=== PATIENT | female | born 1945 | race Caucasian/White ===

== ENCOUNTER 2017-12-30 13:38 | Observation (INO) | payer OTHER, MEDICARE ==
--- NOTE | 2017-12-30 13:41 | PDOC ---
History of Present Illness - General History Source: Patient Exam Limitations: No Limitations - History of Present Illness Initial Comments: 12/30/17 14:24 The patient is a 72 year old female with history of hypertension, hyperlipidemia , DM, past SVT who presents to the ED complaining of diffuse back, neck, and chest pain that began this morning. The patient states her pain is constant, moderate in intensity, radiating to the elbows bilaterally, with no alleviating or exacerbating factors. She also reports associated nausea. No fever or chills. No headache or blurred vision. EKG on ED arrival demonstrated SVT. The patient does endorse having Lighting Engineering Technician: Dr. Alfonso, <Ashley Perez - Last Filed: 12/30/17 15:59> <Jonah Walker - Last Filed: 12/30/17 19:07> - General Chief Complaint: Irregular Heart Beat Stated Complaint: FAST HEART BEAT Time Seen by Provider: 12/30/17 13:40 Past History <Ashley Perez - Last Filed: 12/30/17 15:59> <Jonah Walker - Last Filed: 12/30/17 19:07> - Past Medical History Allergies/Adverse Reactions: Allergies Allergy/AdvReac Type Severity Reaction Status Date / Time Fish Containing Products Allergy Verified 12/30/17 13:53 Penicillins Allergy Verified 12/30/17 13:53 Home Medications: Ambulatory Orders Diltiazem [Cardizem -] 120 mg PO DAILY 12/30/17 Levothyroxine [Synthroid -] 125 mcg PO DAILY 12/30/17 Quinapril HCl 20 mg PO ASDIR 12/30/17 Quinapril/Hydrochlorothiazide [Accuretic 20-12.5 mg Tablet] 1 each PO DAILY Review of Systems - Review of Systems Able to Perform ROS?: Yes Comments:: 12/30/17 14:29 A complete review of 10 out of 10 review of systems is taken and is negative apart from what is previously mentioned below and in the HPI. <Ashley Perez - Last Filed: 12/30/17 15:59> *Physical Exam - Vital Signs Last Vital Signs Temp Pulse Resp BP Pulse Ox 103 H 20 159/84 100 12/30/17 13:59 12/30/17 13:59 12/30/17 13:59 12/30/17 13:59 - Physical Exam Comments: 12/30/17 14:30 Vitals: Triage vital signs reviewed General Appearance: No acute distress, well nourished, well developed Head: Atraumatic Neck: Supple; No nuchal rigidity Chest Wall: Nontender Cardiac: Regular rate and rhythm, no murmurs, no rubs, no gallops Lungs: Clear to auscultation bilateral, good air movement bilaterally Abdomen: Soft, nondistended, normal bowel sounds, nontender to palpation Extremities: Full range of motion to all extremities, no cyanosis, clubbing, or edema Skin: Warm and dry, no rashes or lesions, no rash, no petechiae Neuro: AOX3; Cranial Nerves 2-12 grossly intact, Strength intact to all extremities, Sensation intact to all extremities, gait normal Psych: Normal mood, normal affect <Ashley Perez - Last Filed: 12/30/17 15:59> ED Treatment Course - LABORATORY CBC & Chemistry Diagram: 12/30/17 13:46 12/30/17 13:46 - ADDITIONAL ORDERS Additional order review: 12/30/17 13:46 RBC 4.46 MCV 91.0 MCHC 35.0 RDW 12.6 MPV 8.7 Neutrophils % 65.5 Lymphocytes % 25.8 Monocytes % 6.7 Eosinophils % 1.6 Basophils % 0.4 <Ashley Perez - Last Filed: 12/30/17 15:59> - LABORATORY CBC & Chemistry Diagram: 12/30/17 13:46 12/30/17 13:46 <Jonah Walker - Last Filed: 12/30/17 19:07> Medical Decision Making - Medical Decision Making 12/30/17 15:05 72 year old female with history of hypertension, hyperlipidemia, diabetes, past SVT here today for 1 day history of diffuse chest and torso pain and nausea. EKG on arrival demonstrates SVT. Plan: -Lab (CBC, CMP, Lactic Acid, Trop) -CXR -EKG -IVF <Ashley Perez - Last Filed: 12/30/17 15:59> - Critical Care Time Total Critical Care Time (minutes): 45 Critical Care Statement: The care of this patient involved high complexity decision making to prevent further life threatening deterioration of the patient 's condition and/or to evaluate & treat vital organ system(s) failure or risk of failure. - Medical Decision Making Medical decision making status post adenosine patient now in sinus rhythm no ischemic changes. All patient symptomatology including neck back shoulder arm discomfort have all resolved. Her repeat EKG demonstrates sinus rhythm with no ST elevations and no T-wave inversions Labs pending Reevaluation first troponin negative Case discussed with patient's covering yarding and folding machine operator Dr. Hooker agrees with plan of second troponin if no delta in her troponins we will increase her diltiazem from 60 mg to 120 mg and she be discharged home Reevaluation patient remains chest pain-free however her second troponin has increased 2.1 Given this delta patient will require observation overnight for serial troponins. We'll give 325 mg aspirin. Will observe overnight. Assessment was to management of care. <Jonah Walker - Last Filed: 12/30/17 19:07> *DC/Admit/Observation/Transfer - Attestations Scribe Attestion: 12/30/17 14:30 Documentation prepared by Ashley Perez, acting as medical assistant prn for Jonah Walker MD. <Ashley Perez - Last Filed: 12/30/17 15:59> - Discharge Dispostion Admit: Yes <Jonah Walker - Last Filed: 12/30/17 19:07> Diagnosis at time of Disposition: SVT (supraventricular tachycardia), Elevated troponin
[2017-12-30 14:17] LABS: BASO % 0.4 % (0-2.0); EOS % 1.6 % (0-4.5); HEMATOCRIT 40.6 % (32.4-45.2); HEMOGLOBIN 14.2 GM/dl (10.7-15.3); LYMPH % 25.8 % (8-40); MCH 31.9 pg (25.7-33.7); MEAN PLT VOLUME 8.7 fl (7.5-11.1); MONO % 6.7 % (3.8-10.2); NEUT % 65.5 % (42.8-82.8); PLATELET COUNT 263 K/MM3 (134-434); RBC 4.46 M/mm3 (3.60-5.2); RDW 12.6 % (11.6-15.6); WHITE BLOOD COUNT 10.3 K/mm3 (4.0-10.8)
[2017-12-30 14:26] LABS: ALBUMIN 4.3 g/dl (3.5-5.0); ALK PHOS 81 U/L (32-92); ANION GAP 7 (8-16); BILIRUBIN,TOTAL 0.8 mg/dl (0.2-1.0); BLOOD UREA NITROGEN 16 mg/dl (7-18); CALCIUM 8.8 mg/dl (8.4-10.2); CHLORIDE 101 mmol/L (98-107); CO2 28 mmol/L (22-28); GLUCOSE,RANDOM 118 mg/dl (74-106); POTASSIUM 3.3 mmol/L (3.5-5.1); SGOT/AST 42 U/L (10-42); SGPT/ALT 47 U/L (10-40); SODIUM 136 mmol/L (136-145); TOT PROT 7.4 g/dl (6.4-8.3)
[2017-12-30] MEDS ORDERED: ADENOSINE 6 MG/2 ML VIAL IVPUSH ONE (14:30)
[2017-12-30 14:34] LABS: CREATININE 0.8 mg/dl (0.6-1.3)
[2017-12-30] MEDS ORDERED: dilTIAZem HCL 60 MG TABLET (FP) PO ONE (16:55)
[2017-12-30] MEDS ORDERED: ASPIRIN 325 MG ENTERIC COATED TABLET (FP) PO ONE (18:19)
[2017-12-30] MEDS ORDERED: ASPIRIN 325 MG TABLET ONE (19:07)
[2017-12-30] MEDS ORDERED: POTASSIUM CHLORIDE TABS 20 MEQ TABLET.ER (FP) PO ONE ×2 (19:27→19:30)
--- NOTE | 2017-12-30 23:56 | HP ---
CHIEF COMPLAINT: rapid heart beat PCP: Naty HISTORY OF PRESENT ILLNESS: This is a 72 year old female with a past medical history significant for SVT and hypothyroidism who presented to the ED with rapid heart beat. Pt reports that when she awoke this morning she wasn;t feeling well; she reports nausea, general malaise, neck and shoulder pain, elbow and hand achiness. She attributed the pain to working on her computer more over the past 2 days and decided she needed some exercise. She decided to walk to the [employer] but when she got to the library her heart started racing. SHe also reports that her BP was unusually high in the 150s this morning and she realized she had not taken her diltiazem over the past 2 days as she had "set it aside to take later, but later never came". She took her diltiazem and her quinapril 20/HCTZ this am. She reports she missed her synthroid this am. She denies any chest pain. ER course was notable for: (1) ECG with SVT, given adenosine 6mg with conversion to SR (2) second troponin 0.10 Recent Travel: pt denies PAST MEDICAL HISTORY: HTN, HLD, DM, SVT, hypothyroidism PAST SURGICAL HISTORY: tear duct surgery, thyroidectomy 2007, x 2 Social History: Smoking: pt denies Alcohol: occ-1xmonth maybe Drugs: pt denies Family History: mother age 86, multiple CVAs father age 93, asthma, DM2, prostate CA 1 sister s/p PPM 1 sister lupus arthritis Allergies Fish Containing Products Allergy (Verified 12/30/17 13:53) Penicillins Allergy (Verified 12/30/17 13:53) HOME MEDICATIONS: 3 Medication Instructions Recorded Diltiazem [Cardizem -] 120 mg PO DAILY 12/30/17 Levothyroxine [Synthroid -] 125 mcg PO DAILY 12/30/17 Quinapril HCl 20 mg PO [facility] 12/30/17 Quinapril/Hydrochlorothiazide 1 each PO [facility] 12/30/17 [Accuretic 20-12.5 mg Tablet] REVIEW OF SYSTEMS CONSTITUTIONAL: Absent: fever, chills, diaphoresis, generalized weakness, malaise, loss of appetite, weight change HEENT: Absent: rhinorrhea, nasal congestion, throat pain, throat swelling, difficulty swallowing, mouth swelling, ear pain, eye pain, visual changes CARDIOVASCULAR: Present: palpitations, rapid heart beat Absent: chest pain, syncope, irregular heart rate, lightheadedness, peripheral edema RESPIRATORY: Absent: cough, shortness of breath, dyspnea with exertion, orthopnea, wheezing, stridor, hemoptysis GASTROINTESTINAL: Present: nausea Absent: abdominal pain, abdominal distension, vomiting, diarrhea, constipation, melena, hematochezia GENITOURINARY: Absent: dysuria, frequency, urgency, hesitancy, hematuria, flank pain, genital pain MUSCULOSKELETAL: Present: shoulder pain, neck pain, elbow pain and hand pain Absent: myalgia, arthralgia, joint swelling, back pain, neck pain SKIN: Absent: rash, itching, pallor HEMATOLOGIC/IMMUNOLOGIC: Absent: easy bleeding, easy bruising, lymphadenopathy, frequent infections ENDOCRINE: Absent: unexplained weight gain, unexplained weight loss, heat intolerance, cold intolerance NEUROLOGIC: Absent: headache, focal weakness or paresthesias, dizziness, unsteady gait, seizure, mental status changes, bladder or bowel incontinence PSYCHIATRIC: Absent: anxiety, depression, suicidal or homicidal ideation, hallucinations. PHYSICAL EXAMINATION Vital Signs - 24 hr 3 12/30/17 12/30/17 12/30/17 13:38 13:59 14:36 Temperature 97.2 F L 97.2 F L Pulse Rate 192 H Pulse Rate [ 103 H 98 H Right] Respiratory 20 20 20 Rate Blood Pressure 164/112 Blood Pressure 159/84 129/77 [Left Arm] O2 Sat by Pulse 97 100 97 Oximetry (%) 3 12/30/17 12/30/17 12/30/17 15:33 15:54 18:12 Temperature 98 F Pulse Rate Pulse Rate [ 93 H 89 72 Right] Respiratory 20 20 20 Rate Blood Pressure Blood Pressure 123/72 121/74 133/64 [Left Arm] O2 Sat by Pulse 99 98 98 Oximetry (%) GENERAL: Awake, alert, and fully oriented, in no acute distress. HEAD: Normal with no signs of trauma. EYES: Pupils equal, round and reactive to light, extraocular movements intact, sclera anicteric, conjunctiva clear. No lid lag. EARS, NOSE, THROAT: Ears normal, nares patent, oropharynx clear without exudates. Moist mucous membranes. NECK: Normal range of motion, supple without lymphadenopathy, JVD, or masses. LUNGS: Breath sounds equal, clear to auscultation bilaterally. No wheezes, and no crackles. No accessory muscle use. HEART: Regular rate and rhythm, normal S1 and S2 without murmur, rub or gallop. ABDOMEN: Soft, nontender, not distended, normoactive bowel sounds, no guarding, no rebound, no masses. No hepatomegaly or splenomegaly. MUSCULOSKELETAL: Normal range of motion at all joints. No bony deformities or tenderness. No CVA tenderness. UPPER EXTREMITIES: 2+ pulses, warm, well-perfused. No cyanosis. No clubbing. No peripheral edema. LOWER EXTREMITIES: 2+ pulses, warm, well-perfused. No calf tenderness. No peripheral edema. NEUROLOGICAL: Cranial nerves II-XII intact. Normal speech. Normal gait. PSYCHIATRIC: Cooperative. Good eye contact. Appropriate mood and affect. SKIN: Warm, dry, normal turgor, no rashes or lesions noted, normal capillary refill. Laboratory Results - last 24 hr 3 12/30/17 12/30/17 12/30/17 12/30/17 12/30/17 13:42 13:46 13:46 16:52 17:01 WBC 10.3 RBC 4.46 Hgb 14.2 Hct 40.6 MCV 91.0 MCH 31.9 MCHC 35.0 RDW 12.6 Plt Count 263 MPV 8.7 Neutrophils % 65.5 Lymphocytes % 25.8 Monocytes % 6.7 Eosinophils % 1.6 Basophils % 0.4 Sodium 136 Potassium 3.3 L Chloride 101 Carbon Dioxide 28 Anion Gap 7 L BUN 16 Creatinine 0.8 Creat Clearance w eGFR > 60 Random Glucose 118 H Calcium 8.8 Magnesium 1.8 Total Bilirubin 0.8 AST 42 ALT 47 H Alkaline Phosphatase 81 Troponin I < 0.03 0.10 H Total Protein 7.4 Albumin 4.3 EC12/30/17 13:36 SVT Vent rate [address] abnormality, possible inferolateral subendocardial injury 12/30/17 14:00 Sinus tachycardia with occ PVC Vent rate 105, QTC [address]/T wave changes present Radiology Reports CXR IMPRESSION: No acute disease. Reported By: Stanley Regan MD 12/30/17 0694 ASSESSMENT/PLAN: 72yF with PMH HTN, HLD, SVT, DM, hypothyroidism presented to the ED with rapid heart beat. SVT - broke with adenosine 6mg - likely due to pt missing doses of diltiazem - resume home diltiazem and increase dose to 120mg daily as per ED as per PCP - monitor on tele Elevated troponin - likely due to demand ischemia during SVT - trend troponin - ASA given in ED HLD - not on meds, f/u with PCP hypothyroidism - check TSH DM - pt states she is diet controlled. Check A1C DVT PPX - deferred, anticipated LOS <48h FEN - tolerating po - BMP in am - low sodium diet in am Dispo: Pt requires cardiac monitoring overnight. May go home in am for outpatient follow up if Troponin trends down Visit type - Emergency Visit Emergency Visit: Yes ED Registration Date: 12/30/17 Care time: The patient presented to the Emergency Department on the above date and was hospitalized for further evaluation of their emergent condition. - New Patient This patient is new to me today: Yes Date on this admission: 12/30/17 - Critical Care Critical Care patient: No
[2017-12-31 01:34] VITALS: BMI 24.5
[2017-12-31] MEDS ORDERED: LEVOTHYROXINE NA 125 MCG TABLET (FP) PO SCH (07:00)
[2017-12-31 09:01] LABS: ANION GAP 8 (8-16); BLOOD UREA NITROGEN 14 mg/dl (7-18); CALCIUM 8.9 mg/dl (8.4-10.2); CHLORIDE 105 mmol/L (98-107); CO2 26 mmol/L (22-28); GLUCOSE,RANDOM 125 mg/dl (74-106); MAGNESIUM 1.9 mg/dL (1.8-2.4); PHOSPHOROUS 3.5 mg/dl (2.5-4.6); POTASSIUM 3.7 mmol/L (3.5-5.1); SODIUM 139 mmol/L (136-145)
[2017-12-31 09:49] LABS: CREATININE < 0.8 mg/dl (0.6-1.3)
[2017-12-31] MEDS ORDERED: PATIENT'S OWN MEDICATION (NON-FORMULARY) (Quinapril/Hydrochlorothiazide [Accuretic 20-12.5 PO SCH (10:00)
[2017-12-31] MEDS ORDERED: HYDROCHLOROTHIAZIDE 12.5 MG CAPSULE (FP) PO SCH (10:00)
[2017-12-31] MEDS ORDERED: QUINAPRIL HCL 20 MG TABLET (FP) PO SCH (10:00)
[2017-12-31 10:09] LABS: BASO % 0.6 % (0-2.0); EOS % 2.1 % (0-4.5); HEMATOCRIT 37.7 % (32.4-45.2); HEMOGLOBIN 13.2 GM/dl (10.7-15.3); LYMPH % 29.9 % (8-40); MEAN CELL VOLUME 91.5 fl (80-96); MEAN PLT VOLUME 8.4 fl (7.5-11.1); MONO % 6.8 % (3.8-10.2); NEUT % 60.6 % (42.8-82.8); PLATELET COUNT 236 K/MM3 (134-434); RBC 4.12 M/mm3 (3.60-5.2); RDW 12.7 % (11.6-15.6); WHITE BLOOD COUNT 6.8 K/mm3 (4.0-10.8)
--- NOTE | 2017-12-31 12:28 | EKG ---
Test Reason : Blood Pressure : / mmHG Vent. Rate : 053 BPM Atrial Rate : 053 BPM P-R Int : 178 ms QRS Dur : 080 ms QT Int : 418 ms P-R-T Axes : 065 008 022 degrees QTc Int : 392 ms POOR DATA QUALITY, INTERPRETATION MAY BE ADVERSELY AFFECTED SINUS BRADYCARDIA OTHERWISE NORMAL ECG NO PREVIOUS ECGS AVAILABLE Confirmed by PJ PENALOZA MD ([id number]) on 12/31/2017 12:28:36 PM Referred By: Confirmed By:PJ PENALOZA MD
--- NOTE | 2017-12-31 12:59 | PN ---
Progress Note, Physician Chief Complaint: Paroxysmal SVT - Current Medication List Current Medications: Active Medications Diltiazem HCl (Cardizem Cd -) 120 mg PO DAILY [facility] Last Admin: 12/31/17 09:23 Dose: 120 mg Hydrochlorothiazide (Hctz -) 12.5 mg PO DAILY [facility] Last Admin: 12/31/17 09:23 Dose: 12.5 mg Levothyroxine Sodium (Synthroid -) 125 mcg PO DAILY@0700 [facility] Last Admin: 12/31/17 06:35 Dose: 125 mcg Quinapril HCl (Accupril -) 20 mg PO DAILY [facility] Last Admin: 12/31/17 09:23 Dose: 20 mg - Objective Vital Signs: Vital Signs Temperature 97.7 F 12/31/17 09:18 Pulse Rate 67 12/31/17 09:18 Respiratory Rate 18 12/31/17 09:18 Blood Pressure 186/67 12/31/17 09:18 O2 Sat by Pulse Oximetry (%) 98 12/31/17 06:11 Labs: CBC, BMP 12/31/17 07:00 12/31/17 07:00
--- NOTE | 2017-12-31 13:06 | CON.CARD ---
Consult Consult Specialty:: Cardiology Referred by:: Erica Barillas NP Reason for Consultation:: Paroxysmal SVT - History of Present Illness Chief Complaint: SVT History of Present Illness: 72 yo female with HTN, h/o paroxysmal SVT, and hypothyroidism who presented to the ED with palpitations which began yesterday morning. She had reported dealing with an "illness" over the past several weeks and had developed nausea, malaise, body myalgias including shoulder and neck pain which she attributed to working on her computer over the past several days. She took a walk outside yesterday and developed sudden onset of palpitations with associated bilateral arm discomfort. She reports missing her diltiazem over the past several days. In ED, she was found to be in SVT with HR 180s. She was given adenosine 6 mg IV x1 with conversion of SVT to sinus rhythm with improvement in her bilateral arm discomfort. Her initial trop was 0.10 -> 0.11 -> 0.04. Currently asymptomatic. Patient reports that her last stress test was ~ 2-3 years ago. - History Source History Provided By: Patient, Family Member () Limitations to Obtaining History: No Limitations - Past Medical History Cardio/Vascular: Yes: HTN, Hyperlipdemia, Other (Paroxysmal SVT) ...: No Endocrine: Yes: Hypothyroidism - Past Surgical History Past Surgical History: Yes: (x2) Additional Surgical History: Throidectomy 2008, tear duct surgery - Alcohol/Substance Use Hx Alcohol Use: No - Smoking History Smoking history: Never smoked Have you smoked in the past 12 months: No Home Medications - Allergies Allergies/Adverse Reactions: Allergies Allergy/AdvReac Type Severity Reaction Status Date / Time Fish Containing Products Allergy Verified 12/30/17 13:53 Penicillins Allergy Verified 12/30/17 13:53 - Home Medications Home Medications: Ambulatory Orders Diltiazem [Cardizem -] 120 mg PO DAILY 12/30/17 Levothyroxine [Synthroid -] 125 mcg PO DAILY 12/30/17 Quinapril HCl 20 mg PO ASDIR 12/30/17 Quinapril/Hydrochlorothiazide [Accuretic 20-12.5 mg Tablet] 1 each PO DAILY Family Disease History - Family Disease History Family Disease History: Diabetes: Father (Prostate cancer), CA: Father, Other: Mother (CVAs), Sister (Lupus) Review of Systems - Review of Systems Constitutional: reports: No Symptoms Eyes: reports: No Symptoms Cardiovascular: reports: Palpitations. denies: Chest Pain, Edema, Shortness of Breath Respiratory: reports: No Symptoms Gastrointestinal: reports: No Symptoms Genitourinary: reports: No Symptoms Musculoskeletal: reports: Other (Shoulder muscle aches) Neurological: reports: No Symptoms Endocrine: reports: No Symptoms Hematology/Lymphatic: reports: No Symptoms Psychiatric: reports: No Symptoms Vital Signs: Vital Signs Temperature 97.7 F 12/31/17 09:18 Pulse Rate 67 12/31/17 09:18 Respiratory Rate 18 12/31/17 09:18 Blood Pressure 186/67 12/31/17 09:18 O2 Sat by Pulse Oximetry (%) 98 12/31/17 06:11 Constitutional: Yes: Well Nourished, No Distress Eyes: Yes: Conjunctiva Clear, EOM Intact HENT: Yes: Atraumatic, Normocephalic Respiratory: Yes: CTA Bilaterally Gastrointestinal: Yes: Normal Bowel Sounds, Soft. No: Tenderness Cardiovascular: Yes: Regular Rate and Rhythm JVD: No Carotid Bruit: No PMI: Non-Displaced Heart Sounds: Yes: S1, S2 Murmur: No: Systolic Murmur Extremities: Yes: WNL Edema: No Peripheral Pulses WNL: Yes Neurological: Yes: WNL, Alert, Oriented, Cran Nerves II-XII Intact Psychiatric: Yes: WNL - Other Data Labs, Other Data: CBC, BMP 12/31/17 07:00 12/31/17 07:00 Troponin, BNP 12/30/17 12/30/17 12/30/17 13:42 13:46 17:01 Troponin I < 0.03 Cancelled 0.10 H 12/31/17 12/31/17 12/31/17 00:20 00:21 07:00 Troponin I 0.11 H Cancelled 0.04 Troponin, BNP 12/30/17 12/30/17 12/30/17 13:42 13:46 17:01 Troponin I < 0.03 Cancelled 0.10 H 12/31/17 12/31/17 12/31/17 00:20 00:21 07:00 Troponin I 0.11 H Cancelled 0.04 12/31/17 ECG: Sinus bradycardia, rate 53 bpm Imaging - Results Chest X-ray: Report Reviewed (2/15/18: No acute disease), Image Reviewed Assessment/Plan 72 yo female with HTN, paroxysmal SVT, and hypothyroidism who presented to the ED yesterday with paroxysmal SVT with HR 180s. Converted to sinus with 6 mg of IV adenosine with resolution of her associated bilateral arm discomfort. Her initial trop was 0.10 -> 0.11 -> 0.04. TSH pending Currently asymptomatic. RECS: Patient was instructed to continue her diltiazem and to ensure she does not miss any doses. Continue her Patient to follow-up with her private psychology lecturer and would benefit from echocardiogram (if not done recently) and stress testing to evaluate for ischemic heart disease given reported bilateral arm discomfort with her SVT. Patient may be discharged from cardiac standpoint. No further inpatient cardiac evaluation/intervention is clinically indicated at this time. Will see prn. Please call with questions.
--- NOTE | 2017-12-31 14:01 | DS ---
Physical Exam: SUBJECTIVE: Patient seen and examined OBJECTIVE: Vital Signs Period Temp Pulse Resp BP Sys/Shea Pulse Ox Last 24 Hr 97.2 F-98.1 F 61-98 16-20 104-186/59-77 96-100 PHYSICAL EXAM GENERAL: The patient is awake, alert, and fully oriented, in no acute distress. HEAD: Normal with no signs of trauma. EYES: PERRL, extraocular movements intact, sclera anicteric, conjunctiva clear. ENT: Ears normal, nares patent, oropharynx clear without exudates, moist mucous membranes. NECK: Trachea midline, full range of motion, supple. LUNGS: Breath sounds equal, clear to auscultation bilaterally, no wheezes, no crackles, no accessory muscle use. HEART: Regular rate and rhythm, S1, S2 without murmur, rub or gallop. ABDOMEN: Soft, nontender, nondistended, normoactive bowel sounds, no guarding, no rebound, no hepatosplenomegaly, no masses. EXTREMITIES: 2+ pulses, warm, well-perfused, no edema. NEUROLOGICAL: Cranial nerves II through XII grossly intact. Normal speech, gait not observed. PSYCH: Normal mood, normal affect. SKIN: Warm, dry, normal turgor, no rashes or lesions noted. LABS Laboratory Results - last 24 hr 12/30/17 12/30/17 12/30/17 13:42 13:42 13:46 WBC RBC Hgb Hct MCV MCH MCHC RDW Plt Count MPV Neutrophils % Lymphocytes % Monocytes % Eosinophils % Basophils % Sodium 136 Potassium 3.3 L Chloride 101 Carbon Dioxide 28 Anion Gap 7 L BUN 16 Creatinine 0.8 Creat Clearance w eGFR > 60 Random Glucose 118 H Hemoglobin A1c % Lactic Acid Cancelled Calcium 8.8 Phosphorus Magnesium Total Bilirubin 0.8 AST 42 ALT 47 H Alkaline Phosphatase 81 Creatine Kinase Troponin I < 0.03 Total Protein 7.4 Albumin 4.3 12/30/17 12/30/17 12/30/17 13:46 13:46 16:52 WBC 10.3 RBC 4.46 Hgb 14.2 Hct 40.6 MCV 91.0 MCH 31.9 MCHC 35.0 RDW 12.6 Plt Count 263 MPV 8.7 Neutrophils % 65.5 Lymphocytes % 25.8 Monocytes % 6.7 Eosinophils % 1.6 Basophils % 0.4 Sodium Potassium Chloride Carbon Dioxide Anion Gap BUN Creatinine Creat Clearance w eGFR Random Glucose Hemoglobin A1c % Lactic Acid Calcium Phosphorus Magnesium 1.8 Total Bilirubin AST ALT Alkaline Phosphatase Creatine Kinase Troponin I Cancelled Total Protein Albumin 12/30/17 12/31/17 12/31/17 17:01 00:20 00:21 WBC RBC Hgb Hct MCV MCH MCHC RDW Plt Count MPV Neutrophils % Lymphocytes % Monocytes % Eosinophils % Basophils % Sodium Potassium Chloride Carbon Dioxide Anion Gap BUN Creatinine Creat Clearance w eGFR Random Glucose Hemoglobin A1c % Lactic Acid Calcium Phosphorus Magnesium Total Bilirubin AST ALT Alkaline Phosphatase Creatine Kinase 83 Troponin I 0.10 H 0.11 H Cancelled Total Protein Albumin 12/31/17 12/31/17 12/31/17 00:21 07:00 07:00 WBC 6.8 D RBC 4.12 Hgb 13.2 Hct 37.7 MCV 91.5 MCH 32.0 MCHC 35.0 RDW 12.7 Plt Count 236 MPV 8.4 Neutrophils % 60.6 Lymphocytes % 29.9 Monocytes % 6.8 Eosinophils % 2.1 Basophils % 0.6 Sodium 139 Potassium 3.7 Chloride 105 Carbon Dioxide 26 Anion Gap 8 BUN 14 Creatinine < 0.8 Creat Clearance w eGFR Random Glucose 125 H Hemoglobin A1c % Lactic Acid Calcium 8.9 Phosphorus 3.5 Magnesium 1.9 Total Bilirubin AST ALT Alkaline Phosphatase Creatine Kinase Cancelled Troponin I Total Protein Albumin 12/31/17 12/31/17 12/31/17 07:00 07:00 07:00 WBC RBC Hgb Hct MCV MCH MCHC RDW Plt Count MPV Neutrophils % Lymphocytes % Monocytes % Eosinophils % Basophils % Sodium Potassium Chloride Carbon Dioxide Anion Gap BUN Creatinine Creat Clearance w eGFR Random Glucose Hemoglobin A1c % 5.9 Lactic Acid Calcium Phosphorus Magnesium Total Bilirubin AST ALT Alkaline Phosphatase Creatine Kinase 75 Troponin I 0.04 Total Protein Albumin HOSPITAL COURSE: Date of Admission:12/31/17 Date of Discharge: 12/31/17 SVT non-compliant Minutes to complete discharge: 35 Discharge Summary Reason For Visit: FAST HEART BEAT Current Active Problems Elevated troponin (Acute) SVT (supraventricular tachycardia) (Acute) Condition: Improved - Instructions Diet, Activity, Other Instructions: A prescription has been sent to your pharmacy for Cardizem CD 120mg. Take this medication as directed. It is very important you take all your prescribed medications as directed. Please follow up with your collection supervisor Dr. Bayron Alfonso early next week. Advise him of your stay in the hospital. He may wish to do further testing. Return to the emergency department for any new or worsening symptoms. Referrals: Bayron Alfonso [Non Staff, Medical] - Disposition: HOME - Home Medications Comprehensive Discharge Medication List: Ambulatory Orders Diltiazem [Cardizem -] 120 mg PO DAILY 12/30/17 Levothyroxine [Synthroid -] 125 mcg PO DAILY 12/30/17 Quinapril HCl 20 mg PO ASDIR 12/30/17 Quinapril/Hydrochlorothiazide [Accuretic 20-12.5 mg Tablet] 1 each PO DAILY This patient is new to me today: Yes Date on this admission: 12/31/17 Emergency Visit: Yes ED Registration Date: 12/31/17 Care time: The patient presented to the Emergency Department on the above date and was hospitalized for further evaluation of their emergent condition. Critical Care patient: No - Discharge Referral Referred to [facility] Med [facility] No
[2017-12-31 14:44] VITALS: BP 133/58; PULSE 60; TEMP 98.8
--- NOTE | 2018-01-03 19:54 | EKG ---
Test Reason : Blood Pressure : / mmHG Vent. Rate : 186 BPM Atrial Rate : 163 BPM P-R Int : 000 ms QRS Dur : 092 ms QT Int : 246 ms P-R-T Axes : 000 011 161 degrees QTc Int : 432 [address] depression in I, aVL, inferior leads, and V4-6, consider ischemia ABNORMAL ECG NO PREVIOUS ECGS AVAILABLE Confirmed by PJ PENALOZA MD ([id number]) on 01/03/2018 7:54:07 PM Referred By: HAYES HUERTA Confirmed By:PJ PENALOZA MD
--- NOTE | 2018-01-05 12:11 | EKG ---
Test Reason : Blood Pressure : / mmHG Vent. Rate : 105 BPM Atrial Rate : 105 BPM P-R Int : 202 ms QRS Dur : 074 ms QT Int : 318 ms P-R-T Axes : 070 021 057 degrees QTc Int : 420 ms SINUS TACHYCARDIA WITH OCCASIONAL PREMATURE VENTRICULAR COMPLEXES LEFT ATRIAL ENLARGEMENT WHEN COMPARED WITH ECG OF 30-DEC-2017 13:36, Sinus rhythm has replaced SVT PREMATURE VENTRICULAR COMPLEXES ARE NOW PRESENT VENT. RATE HAS DECREASED BY [address] NO LONGER DEPRESSED IN INFERIOR LEADS ST LESS DEPRESSED IN LATERAL LEADS Confirmed by CA NASCIMENTO, PJ ([id number] on 01/05/2018 12:10:59 PM Referred By: HAYES HUERTA Confirmed By:PJ PENALOZA MD
== END 2017-12-31 14:34 | disposition home or self-care (01) ==
LOC: FER 13:38 → FM/S 12-31 00:42
PROVIDERS: ADMIT Internal Medicine; ATTEND Nurse Practitioner Family
PROC: 3E033GC Introduction of Other Therapeutic Substance into Peripheral Vein, Percutaneous Approach (ICD-10-PCS; principal; 2017-12-31)
DX: I47.1 Supraventricular tachycardia (principal); R77.8 Other specified abnormalities of plasma proteins; I10 Essential (primary) hypertension; E78.5 Hyperlipidemia, unspecified; E11.9 Type 2 diabetes mellitus without complications; E03.9 Hypothyroidism, unspecified; Z88.0 Allergy status to penicillin; Z91.013 Allergy to seafood
CPT/HCPCS: 36415; 71045-TC-FY; 80048; 80053; 82550; 83036; 83735; 84100; 84443; 84484; 85025; 93005; 93010; 96374; 99285-25; G0378